=== PATIENT | male | born 1980 | race African-American/Black ===

== ENCOUNTER 2016-08-10 09:25 | Emergency (ER) | payer MEDICAID ==
[~2016-08-10] VITALS: Ht 172.7 cm; Wt 78.9 kg
[~2016-08-10 09:25] MED LIST: ALBU0.084; ALBU18; ASPI81TA10; NAPR-607; OMEP20TA44; TRAM50TA2
[2016-08-10 09:30] VITALS: BP 151/82
[2016-08-10] MEDS ORDERED: KETOROLAC TROMETH 60MG/2ML VIAL IM ONE (10:15)
== END 2016-08-10 10:37 | disposition home or self-care (01) ==
LOC: ER 09:30
DX: M54.41 Lumbago with sciatica, right side (principal); J45.909 Unspecified asthma, uncomplicated; I10 Essential (primary) hypertension; F17.210 Nicotine dependence, cigarettes, uncomplicated; Z86.73 Personal history of transient ischemic attack (TIA), and cerebral infarction without residual deficits
CPT/HCPCS: 96372; 99283; J1885

== ENCOUNTER 2017-04-02 12:45 | Emergency (ER) | payer MEDICAID ==
[~2017-04-02] VITALS: Ht 172.7 cm; Wt 72.1 kg
[~2017-04-02 12:45] MED LIST changes: -NAPR-607; +NAPR500T4
[2017-04-02] MEDS ORDERED: IPRATROPIUM BROM 0.5 MG/2.5ML INH SOL NEB ONE (14:30)
[2017-04-02] MEDS ORDERED: methylPREDNISolone SOD SUCC 125 MG/2 ML VL IM ONE (14:30)
[2017-04-02] MEDS ORDERED: KETOROLAC TROMETH 60MG/2ML VIAL IM ONE (14:30)
[2017-04-02] MEDS ORDERED: ALBUTEROL SULF 2.5 MG/0.5ML(0.5%) NEB SOLN NEB ONE (14:30)
[2017-04-02 15:03] VITALS: BP 126/74
== END 2017-04-02 15:03 | disposition home or self-care (01) ==
LOC: ER 12:45
DX: S29.012A Strain of muscle and tendon of back wall of thorax, initial encounter (principal); J45.901 Unspecified asthma with (acute) exacerbation; I10 Essential (primary) hypertension; F17.200 Nicotine dependence, unspecified, uncomplicated; X58.XXXA Exposure to other specified factors, initial encounter; Y93.89 Activity, other specified; Y92.89 Other specified places as the place of occurrence of the external cause; Y99.8 Other external cause status; Z86.73 Personal history of transient ischemic attack (TIA), and cerebral infarction without residual deficits
CPT/HCPCS: 71020; 94640; 96372; 99284; J1885; J2930

== ENCOUNTER 2017-06-11 11:32 | Emergency (ER) | payer MEDICAID ==
[~2017-06-11] VITALS: Ht 172.7 cm; Wt 70.3 kg
[~2017-06-11 11:32] MED LIST changes: +NAPR500T31; -NAPR500T4
[2017-06-11 13:57] VITALS: BP 136/91
== END 2017-06-11 14:05 | disposition home or self-care (01) ==
LOC: ER 11:32
DX: G89.29 Other chronic pain (principal); M54.5 Low back pain; I10 Essential (primary) hypertension; J45.909 Unspecified asthma, uncomplicated; F17.210 Nicotine dependence, cigarettes, uncomplicated; Z76.0 Encounter for issue of repeat prescription; Z79.899 Other long term (current) drug therapy

== ENCOUNTER 2017-08-07 09:53 | Emergency (ER) | payer MEDICAID, OTHER ==
[~2017-08-07] VITALS: Ht 172.7 cm; Wt 71.2 kg
[2017-08-07 10:02] VITALS: BP 122/89
[2017-08-07] MEDS ORDERED: KETOROLAC TROMETH 60MG/2ML VIAL IM ONE (12:30)
== END 2017-08-07 12:51 | disposition home or self-care (01) ==
LOC: ER 09:53
DX: J02.9 Acute pharyngitis, unspecified (principal); M54.41 Lumbago with sciatica, right side; G89.29 Other chronic pain; J45.909 Unspecified asthma, uncomplicated; I10 Essential (primary) hypertension
CPT/HCPCS: 96372; 99283; J1885

== ENCOUNTER 2017-12-26 05:38 | Observation (INO) | payer MEDICAID, OTHER ==
[~2017-12-26] VITALS: Ht 172.7 cm; Wt 70.3 kg
[2017-12-26 06:40] LABS: Basophils # (auto) 0.1 uL; Basophils % (auto) 0.7 % (0.0-2.0); Eosinophils # (auto) 0.4 uL; Eosinophils % (auto) 3.3 % (0.0-7.0); Hematocrit 48.5 % (41.0-53.0); Hemoglobin 16.7 g/dL (13.5-17.5); Lymphocytes # (auto) 2.3 uL; Lymphocytes % (auto) 18.7 % (10.0-50.0); Mean Corpuscular Hemoglobin 32.8 pg (28.0-32.0); Mean Corpuscular Hgb Conc. 34.5 g/dL (32.0-36.0); Mean Corpuscular Volume 95.1 fL (80.0-100.0); Monocytes # (auto) 0.6 uL; Monocytes % (auto) 5.1 % (0.0-12.0); Neutrophils % (auto) 72.2 % (37.0-80.0); Nucleated Red Blood Cells % 0.1 %; Platelet Count (auto) 186 10^3/uL (140-450); Red Cell Distribution Width 13.3 % (11.8-14.3); White Blood Cell 12.4 10^3/uL (4.4-10.8)
[2017-12-26 06:59] LABS: Alanine Aminotransferase 26 U/L (16-61); Albumin 3.7 g/dL (3.4-5.0); Anion Gap 8 (5-15); Aspartate Aminotransferase 12 U/L (15-37); BUN/Creatinine Ratio 11.6; Blood Urea Nitrogen 16 mg/dL (7-18); Calcium 8.1 mg/dL (8.5-10.1); Carbon Dioxide 24 mmol/L (21-32); Chloride 111 mmol/L (98-107); GFR African American 74 mL/min; GFR Non-African American 61 mL/min; Glucose 87 mg/dL (74-106); Potassium 3.8 mmol/L (3.5-5.1); Sodium 143 mmol/L (136-145)
[2017-12-26 07:04] LABS: Alkaline Phosphatase 72 U/L (45-117); Bilirubin, Total 0.4 mg/dL (0.2-1.0); Total Protein 6.7 g/dL (6.4-8.2)
[2017-12-26 07:27] LABS: Urine Bacteria NONE SEEN /hpf (None Seen); Urine Blood Negative /uL (Negative); Urine Specific Gravity 1.007 (1.001-1.035); Urine WBC <1 /hpf (0 - 3)
[2017-12-26] MEDS ORDERED: methylPREDNISolone SOD SUCC 125 MG/2 ML VL IV ONE (07:30)
[2017-12-26] MEDS ORDERED: SODIUM CHLORIDE 0.9% 1,000 ML IV ONE (07:30)
[2017-12-26] MEDS ORDERED: IPRATROPIUM BROM 0.5 MG/2.5ML INH SOL NEB ONE (07:30)
[2017-12-26] MEDS ORDERED: ALBUTEROL SULF 2.5 MG/0.5ML(0.5%) NEB SOLN NEB ONE (07:30)
[2017-12-26 10:42] VITALS: BP 151/93
== END 2017-12-26 12:43 | disposition home or self-care (01) | DRG 141 ==
LOC: ER 05:38 → EDBD 05:38 → OVERFLOW 05:39 → ER 12:43
PROVIDERS: ADMIT Emergency Medicine; ATTEND Emergency Medicine
DX: J45.901 Unspecified asthma with (acute) exacerbation (principal); F17.210 Nicotine dependence, cigarettes, uncomplicated; I10 Essential (primary) hypertension; K59.00 Constipation, unspecified; K21.9 Gastro-esophageal reflux disease without esophagitis; Z82.3 Family history of stroke
CPT/HCPCS: 36415; 71045; 80053; 81001; 83735; 84484; 85025; 94640; 96374; 99285; G0378; J2930; J7030

== ENCOUNTER 2018-05-25 16:22 | Emergency (ER) | payer MEDICAID ==
[~2018-05-25] VITALS: Ht 172.7 cm; Wt 74.8 kg
[2018-05-25 16:50] VITALS: BP 132/95
[2018-05-25] MEDS ORDERED: methylPREDNISolone SOD SUCC 125 MG/2 ML VL IM ONE (17:45)
== END 2018-05-25 18:01 | disposition home or self-care (01) ==
LOC: ER 16:26
DX: J35.01 Chronic tonsillitis (principal); F17.210 Nicotine dependence, cigarettes, uncomplicated; J45.909 Unspecified asthma, uncomplicated; K21.9 Gastro-esophageal reflux disease without esophagitis; I10 Essential (primary) hypertension
CPT/HCPCS: 71046; 96372; 99283; J2930

== ENCOUNTER 2018-11-01 08:15 | Emergency (ER) | payer MEDICAID ==
[~2018-11-01] VITALS: Ht 172.7 cm; Wt 74.8 kg
[2018-11-01] MEDS ORDERED: ALBUTEROL SULF 2.5 MG/0.5ML(0.5%) NEB SOLN NEB ONE (09:00)
[2018-11-01] MEDS ORDERED: methylPREDNISolone SOD SUCC 125 MG/2 ML VL IM ONE (09:00)
[2018-11-01] MEDS ORDERED: IPRATROPIUM BROM 0.5 MG/2.5ML INH SOL NEB ONE (09:00)
[2018-11-01 09:52] VITALS: BP 142/85
== END 2018-11-01 09:54 | disposition home or self-care (01) ==
LOC: ER 08:17
DX: J45.909 Unspecified asthma, uncomplicated (principal); F17.210 Nicotine dependence, cigarettes, uncomplicated; I10 Essential (primary) hypertension; K21.9 Gastro-esophageal reflux disease without esophagitis
CPT/HCPCS: 94640; 96372; 99283; J2930; J7611; J7644

== ENCOUNTER 2019-02-23 13:07 | Emergency (ER) | payer MEDICAID ==
[~2019-02-23] VITALS: Ht 172.7 cm; Wt 74.8 kg
[2019-02-23 14:16] VITALS: BP 130/81
[2019-02-23] MEDS ORDERED: ALBUTEROL SULF 2.5 MG/0.5ML(0.5%) NEB SOLN NEB ONE (14:30)
[2019-02-23] MEDS ORDERED: IPRATROPIUM BROM 0.5 MG/2.5ML INH SOL NEB ONE (14:30)
[2019-02-23] MEDS ORDERED: methylPREDNISolone SOD SUCC 125 MG/2 ML VL IM ONE (14:30)
== END 2019-02-23 15:07 | disposition home or self-care (01) ==
LOC: ER 13:07
DX: J45.909 Unspecified asthma, uncomplicated (principal); K21.9 Gastro-esophageal reflux disease without esophagitis; I10 Essential (primary) hypertension; F17.210 Nicotine dependence, cigarettes, uncomplicated
CPT/HCPCS: 94640; 96372; 99283; J2930; J7611; J7644

== ENCOUNTER 2019-03-03 12:03 | Emergency (ER) | payer MEDICAID ==
[~2019-03-03] VITALS: Ht 172.7 cm; Wt 74.8 kg
[2019-03-03 14:57] VITALS: BP 145/101
== END 2019-03-03 15:04 | disposition home or self-care (01) ==
LOC: ER 12:03
DX: J06.9 Acute upper respiratory infection, unspecified (principal); J45.909 Unspecified asthma, uncomplicated; K21.9 Gastro-esophageal reflux disease without esophagitis; I10 Essential (primary) hypertension
CPT/HCPCS: 71046

== ENCOUNTER 2019-11-28 20:30 | Emergency (ER) | payer MEDICAID ==
[~2019-11-28] VITALS: Ht 172.7 cm; Wt 76.2 kg
[2019-11-28] MEDS ORDERED: ALBUTEROL SULF 2.5 MG/0.5ML(0.5%) NEB SOLN NEB ONE (20:45)
[2019-11-28] MEDS ORDERED: IPRATROPIUM BROM 0.5 MG/2.5ML INH SOL NEB ONE (20:45)
[2019-11-29 00:16] VITALS: BP 124/78
[2019-11-29] MEDS ORDERED: methylPREDNISolone SOD SUCC 125 MG/2 ML VL IM ONE (01:00)
== END 2019-11-29 01:08 | disposition home or self-care (01) ==
LOC: ER 20:30
DX: J45.901 Unspecified asthma with (acute) exacerbation (principal); K21.9 Gastro-esophageal reflux disease without esophagitis; I10 Essential (primary) hypertension; F17.210 Nicotine dependence, cigarettes, uncomplicated; Z76.0 Encounter for issue of repeat prescription
CPT/HCPCS: 71045; 94640; 96372; 99283; J2930; J7644

== ENCOUNTER 2020-12-14 20:20 | Emergency (ER) | payer MEDICAID ==
[~2020-12-14] VITALS: Ht 172.7 cm; Wt 74.8 kg
[2020-12-14] MEDS ORDERED: ALBUTEROL SULF 2.5 MG/0.5ML(0.5%) NEB SOLN NEB ONE (22:30)
[2020-12-14] MEDS ORDERED: IPRATROPIUM BROM 0.5 MG/2.5ML INH SOL NEB ONE (22:30)
[2020-12-15 00:34] VITALS: BP 107/72
[2020-12-15] MEDS ORDERED: methylPREDNISolone SOD SUCC 125 MG/2 ML VL IM ONE (01:45)
[2020-12-15] MEDS ORDERED: methylPREDNISolone SOD SUCC 125 MG/2 ML VL ONE (01:48)
== END 2020-12-15 01:55 | disposition home or self-care (01) ==
LOC: ER 20:20
DX: J45.901 Unspecified asthma with (acute) exacerbation (principal); K21.9 Gastro-esophageal reflux disease without esophagitis; I10 Essential (primary) hypertension; F17.210 Nicotine dependence, cigarettes, uncomplicated
CPT/HCPCS: 71045; 94640; 96372; 99283; J2930

== ENCOUNTER 2021-04-25 10:29 | Emergency (ER) | payer MEDICAID ==
[~2021-04-25] VITALS: Ht 172.7 cm; Wt 77.1 kg
[2021-04-25 11:06] LABS: Urine WBC None Seen /hpf (0 - 3)
[2021-04-25] MEDS ORDERED: ASPirin 81 mg TAB PO ONE (11:15)
[2021-04-25 11:20] LABS: Urine Bacteria NONE SEEN /hpf (None Seen); Urine Blood Negative /uL (Negative)
[2021-04-25 11:20] LABS: Basophils # (auto) 0 10 ^3/uL (0-0.2); Basophils % (auto) 0.2 % (0.0-2.0); Eosinophils # (auto) 0.1 10 ^3/uL (0-0.8); Eosinophils % (auto) 0.5 % (0.0-7.0); Hematocrit 47.9 % (41.0-53.0); Hemoglobin 16.7 g/dL (13.5-17.5); Lymphocytes # (auto) 1.2 10 ^3/uL (0.4-5.4); Lymphocytes % (auto) 12.1 % (10.0-50.0); Mean Corpuscular Hemoglobin 32.6 pg (28.0-32.0); Mean Corpuscular Hgb Conc. 34.8 g/dL (32.0-36.0); Mean Corpuscular Volume 93.8 fL (80.0-100.0); Monocytes # (auto) 0.3 10 ^3/uL (0-1.3); Neutrophils # (auto) 8.6 10 ^3/uL (1.6-8.6); Neutrophils % (auto) 84.2 % (37.0-80.0); Nucleated Red Blood Cells % 0.1 %; Red Blood Cells 5.11 10^6/uL (4.5-5.90); White Blood Cell 10.2 10^3/uL (4.4-10.8)
[2021-04-25 11:27] LABS: Urine Specific Gravity 1.005 (1.001-1.035)
[2021-04-25 11:38] LABS: Magnesium 2.6 mg/dL (1.6-2.6); Potassium 3.9 mmol/L (3.5-5.1)
[2021-04-25 11:45] LABS: Bilirubin, Total 0.6 mg/dL (0.2-1.0); Total Protein 7.2 g/dL (6.4-8.2)
[2021-04-25 12:53] VITALS: BP 127/71
== END 2021-04-25 12:57 | disposition home or self-care (01) ==
LOC: ER 10:29
DX: R07.89 Other chest pain (principal); F17.210 Nicotine dependence, cigarettes, uncomplicated; J45.909 Unspecified asthma, uncomplicated; I10 Essential (primary) hypertension; F12.10 Cannabis abuse, uncomplicated
CPT/HCPCS: 36415; 70450; 71045; 80053; 81001; 83735; 84484; 85025; 93005

== ENCOUNTER 2021-05-22 20:17 | Emergency (ER) | payer MEDICAID ==
[~2021-05-22] VITALS: Ht 182.9 cm; Wt 77.1 kg
[2021-05-22 20:30] VITALS: BP 158/99
[2021-05-22] MEDS ORDERED: LORazepam 0.5 MG TAB PO ONE (22:00)
[2021-05-22] MEDS ORDERED: LORazepam 0.5 MG TAB ONE (22:15)
== END 2021-05-23 06:16 | disposition home or self-care (01) ==
LOC: EDBD 20:17 → ER 20:34
DX: F41.0 Panic disorder [episodic paroxysmal anxiety] (principal); F17.210 Nicotine dependence, cigarettes, uncomplicated; F12.10 Cannabis abuse, uncomplicated; I10 Essential (primary) hypertension; J45.909 Unspecified asthma, uncomplicated

== ENCOUNTER 2021-12-21 11:14 | Emergency (ER) | payer MEDICAID ==
[~2021-12-21] VITALS: Ht 172.7 cm; Wt 77.0 kg
[2021-12-21] MEDS ORDERED: MORPHINE SULFATE INJ 2 MG/ml SYRG IM ONE (14:00)
[2021-12-21] MEDS ORDERED: methylPREDNISolone SOD SUCC 125 MG/2 ML VL IM ONE (14:00)
[2021-12-21 14:33] VITALS: BP 136/64
== END 2021-12-21 14:41 | disposition home or self-care (01) ==
LOC: EDBD 11:14 → ER 11:21
DX: M54.16 Radiculopathy, lumbar region (principal); G89.29 Other chronic pain; J45.909 Unspecified asthma, uncomplicated; K21.9 Gastro-esophageal reflux disease without esophagitis; I10 Essential (primary) hypertension; F17.210 Nicotine dependence, cigarettes, uncomplicated; F12.10 Cannabis abuse, uncomplicated
CPT/HCPCS: 96372; 99284; J2270; J2930

== ENCOUNTER 2021-12-25 10:01 | Emergency (ER) | payer MEDICAID ==
[~2021-12-25] VITALS: Ht 177.8 cm; Wt 77.2 kg
[2021-12-25] MEDS ORDERED: ALBU108A5 IN (11:41)
[2021-12-25] MEDS ORDERED: PROMETHAZINE HCL 25 MG/ML 1ML IM ONE (11:45)
[2021-12-25] MEDS ORDERED: MORPHINE SULFATE INJ 2 MG/ml SYRG IM ONE (11:45)
[2021-12-25 12:10] VITALS: BP 152/102
== END 2021-12-25 12:34 | disposition home or self-care (01) ==
LOC: ER 10:01 → EDBD 10:01 → ER 12:34
DX: G89.29 Other chronic pain (principal); M54.50 Low back pain, unspecified; M54.16 Radiculopathy, lumbar region; J45.909 Unspecified asthma, uncomplicated; M51.36 Other intervertebral disc degeneration, lumbar region; I10 Essential (primary) hypertension; K21.9 Gastro-esophageal reflux disease without esophagitis; F17.210 Nicotine dependence, cigarettes, uncomplicated; Z76.0 Encounter for issue of repeat prescription; Z79.82 Long term (current) use of aspirin; Z79.899 Other long term (current) drug therapy
CPT/HCPCS: 72100; 96372; 99284; J2270; J2550

== ENCOUNTER 2022-01-01 08:08 | Emergency (ER) | payer MEDICAID ==
[~2022-01-01] VITALS: Ht 172.7 cm; Wt 79.2 kg
[~2022-01-01 08:08] MED LIST changes: +ALBU108A5 IN
[2022-01-01 08:15] VITALS: BP 151/102
[2022-01-01] MEDS ORDERED: KETOROLAC TROMETH 60MG/2ML VIAL IM ONE (09:00)
== END 2022-01-01 08:58 | disposition home or self-care (01) ==
LOC: ER 08:08
DX: M54.31 Sciatica, right side (principal); M54.16 Radiculopathy, lumbar region; F17.210 Nicotine dependence, cigarettes, uncomplicated; F12.10 Cannabis abuse, uncomplicated; J45.909 Unspecified asthma, uncomplicated; I10 Essential (primary) hypertension
CPT/HCPCS: 96372; 99283; J1885

== ENCOUNTER 2022-01-03 08:57 | Emergency (ER) | payer MEDICAID ==
[~2022-01-03] VITALS: Ht 172.7 cm; Wt 77.2 kg
[2022-01-03] MEDS ORDERED: KETOROLAC TROMETH 60MG/2ML VIAL IM ONE ×2 (10:00→10:15)
[2022-01-03] MEDS ORDERED: ONDANSETRON ODT 4 MG TAB PO ONE ×2 (10:00→10:15)
[2022-01-03 10:44] VITALS: BP 144/86
== END 2022-01-03 10:47 | disposition home or self-care (01) ==
LOC: ER 08:57
DX: M51.37 Other intervertebral disc degeneration, lumbosacral region (principal); I10 Essential (primary) hypertension; K21.9 Gastro-esophageal reflux disease without esophagitis; J45.909 Unspecified asthma, uncomplicated; F17.210 Nicotine dependence, cigarettes, uncomplicated; Z79.82 Long term (current) use of aspirin; Z79.899 Other long term (current) drug therapy
CPT/HCPCS: 96372; 99283; J1885; Q0162

== ENCOUNTER 2022-01-04 07:01 | Emergency (ER) | payer MEDICAID ==
[~2022-01-04] VITALS: Ht 172.7 cm; Wt 80.0 kg
[2022-01-04] MEDS ORDERED: MORPHINE SULFATE INJ 2 MG/ml SYRG IM ONE (09:30)
[2022-01-04 09:42] VITALS: BP 154/106
== END 2022-01-04 09:45 | disposition home or self-care (01) ==
LOC: EDBD 07:01 → ER 07:01
DX: M54.9 Dorsalgia, unspecified (principal); G89.29 Other chronic pain; F11.20 Opioid dependence, uncomplicated; F17.210 Nicotine dependence, cigarettes, uncomplicated; F12.10 Cannabis abuse, uncomplicated; I10 Essential (primary) hypertension; K21.9 Gastro-esophageal reflux disease without esophagitis; J45.909 Unspecified asthma, uncomplicated
CPT/HCPCS: 96372; 99283; J2270

== ENCOUNTER 2022-01-06 10:50 | Emergency (ER) | payer MEDICAID ==
[~2022-01-06] VITALS: Ht 175.3 cm; Wt 80.0 kg
[2022-01-06] MEDS ORDERED: KETOROLAC TROMETH 60MG/2ML VIAL IM ONE (13:30)
[2022-01-06 13:49] VITALS: BP 155/93
== END 2022-01-06 13:57 | disposition home or self-care (01) ==
LOC: EDBD 10:50 → ER 10:50
DX: M54.59 Other low back pain (principal); M54.16 Radiculopathy, lumbar region; M54.31 Sciatica, right side; F17.210 Nicotine dependence, cigarettes, uncomplicated; F12.10 Cannabis abuse, uncomplicated
CPT/HCPCS: 96372; 99283; J1885

== ENCOUNTER 2022-01-12 09:37 | Emergency (ER) | payer MEDICAID ==
[~2022-01-12] VITALS: Ht 172.7 cm; Wt 76.9 kg
[2022-01-12 09:44] VITALS: BP 141/91
[2022-01-12] MEDS ORDERED: CEPH-510 PO (11:03)
[2022-01-12] MEDS ORDERED: KETOROLAC TROMETH 60MG/2ML VIAL IM ONE (11:15)
== END 2022-01-12 11:57 | disposition home or self-care (01) ==
LOC: ER 09:37
DX: M54.16 Radiculopathy, lumbar region (principal); L03.113 Cellulitis of right upper limb; G89.29 Other chronic pain; M54.50 Low back pain, unspecified; I10 Essential (primary) hypertension; K21.9 Gastro-esophageal reflux disease without esophagitis; J45.909 Unspecified asthma, uncomplicated; F17.210 Nicotine dependence, cigarettes, uncomplicated; Z79.82 Long term (current) use of aspirin; Z79.899 Other long term (current) drug therapy
CPT/HCPCS: 96372; 99283; J1885

== ENCOUNTER 2022-01-28 01:31 | Emergency (ER) | payer MEDICAID ==
[~2022-01-28] VITALS: Ht 172.7 cm; Wt 79.4 kg
[~2022-01-28 01:31] MED LIST changes: +CEPH-510 PO
[2022-01-28 05:40] VITALS: BP 153/103
[2022-01-28] MEDS ORDERED: KETOROLAC TROMETH 60MG/2ML VIAL IM ONE (07:45)
== END 2022-01-28 09:26 | disposition home or self-care (01) ==
LOC: EDBD 01:31 → ER 01:33
DX: R51.9 Headache, unspecified (principal); J45.909 Unspecified asthma, uncomplicated; K21.9 Gastro-esophageal reflux disease without esophagitis; I10 Essential (primary) hypertension; F17.210 Nicotine dependence, cigarettes, uncomplicated; F12.10 Cannabis abuse, uncomplicated
CPT/HCPCS: 70450; 96372; 99283; J1885

== ENCOUNTER 2022-03-09 09:11 | Emergency (ER) | payer MEDICAID ==
[~2022-03-09] VITALS: Ht 172.7 cm; Wt 77.9 kg
[2022-03-09 10:20] VITALS: BP 132/96
[2022-03-09] MEDS ORDERED: DexAMETHasone SOD PHOS 10MG/1ML VIAL INJ IM ONE (11:00)
[2022-03-09] MEDS ORDERED: cefTRIAXone SOD 1,000 MG VL IM ONE (11:00)
[2022-03-09] MEDS ORDERED: METH4PAK PO (11:27)
[2022-03-09] MEDS ORDERED: PHEN-430 PO (11:27)
[2022-03-09] MEDS ORDERED: AZITTAB PO (11:27)
[2022-03-09 11:39] LABS: Urine Bacteria NONE SEEN /hpf (None Seen); Urine Blood Negative /uL (Negative); Urine Specific Gravity 1.015 (1.001-1.035); Urine WBC <1 /hpf (0 - 3)
== END 2022-03-09 11:48 | disposition home or self-care (01) ==
LOC: ER 09:11
DX: J06.9 Acute upper respiratory infection, unspecified (principal); I10 Essential (primary) hypertension; K21.9 Gastro-esophageal reflux disease without esophagitis; J45.909 Unspecified asthma, uncomplicated; F17.210 Nicotine dependence, cigarettes, uncomplicated
CPT/HCPCS: 81001; 96372; 99284; J0696; J1100

== ENCOUNTER 2022-05-05 15:24 | Emergency (ER) | payer MEDICAID ==
[~2022-05-05] VITALS: Ht 172.7 cm; Wt 79.2 kg
[~2022-05-05 15:24] MED LIST changes: +AZITTAB PO; +METH4PAK PO; +PHEN-430 PO
[2022-05-05 15:51] VITALS: BP 158/91
[2022-05-05] MEDS ORDERED: BENZ100C19 PO (16:54)
[2022-05-05] MEDS ORDERED: ALBU108A5 IN (16:54)
[2022-05-05] MEDS ORDERED: AZITTAB PO (16:54)
== END 2022-05-05 17:52 | disposition home or self-care (01) ==
LOC: ER 15:24
DX: J20.9 Acute bronchitis, unspecified (principal); I10 Essential (primary) hypertension; K21.9 Gastro-esophageal reflux disease without esophagitis; J45.909 Unspecified asthma, uncomplicated; F17.210 Nicotine dependence, cigarettes, uncomplicated; Z79.82 Long term (current) use of aspirin; Z79.899 Other long term (current) drug therapy; Z20.822 Contact with and (suspected) exposure to COVID-19
CPT/HCPCS: 36415; 71046; 87426; 87804

== ENCOUNTER 2022-07-07 11:04 | Emergency (ER) | payer MEDICAID ==
[~2022-07-07] VITALS: Ht 172.7 cm; Wt 78.0 kg
[~2022-07-07 11:04] MED LIST changes: +BENZ100C19 PO
[2022-07-07 11:40] LABS: Basophils # (auto) 0.1 10 ^3/uL (0-0.2); Basophils % (auto) 0.5 % (0.0-2.0); Eosinophils # (auto) 0.5 10 ^3/uL (0-0.8); Eosinophils % (auto) 3.1 % (0.0-7.0); Hematocrit 48.2 % (41.0-53.0); Hemoglobin 16.6 g/dL (13.5-17.5); Lymphocytes # (auto) 2.3 10 ^3/uL (0.4-5.4); Mean Corpuscular Hemoglobin 32.3 pg (28.0-32.0); Mean Corpuscular Hgb Conc. 34.4 g/dL (32.0-36.0); Mean Corpuscular Volume 93.9 fL (80.0-100.0); Monocytes # (auto) 0.9 10 ^3/uL (0-1.3); Monocytes % (auto) 5.7 % (0.0-12.0); Neutrophils # (auto) 11.6 10 ^3/uL (1.6-8.6); Neutrophils % (auto) 75.7 % (37.0-80.0); Red Blood Cells 5.14 10^6/uL (4.5-5.90); Red Cell Distribution Width 13.3 % (11.8-14.3); White Blood Cell 15.3 10^3/uL (4.4-10.8)
[2022-07-07 12:16] LABS: Albumin 4.3 g/dL (3.4-5.0); BUN/Creatinine Ratio 12.1; Bilirubin, Total 0.7 mg/dL (0.2-1.0); Calcium 8.8 mg/dL (8.5-10.1); Potassium 4.8 mmol/L (3.5-5.1); Total Protein 6.7 g/dL (6.4-8.2)
[2022-07-07] MEDS ORDERED: methylPREDNISolone SOD SUCC 125 MG/2 ML VL IM ONE (12:30)
[2022-07-07] MEDS ORDERED: IPRATROPIUM BROM 0.5 MG/2.5ML INH SOL NEB ONE (12:30)
[2022-07-07] MEDS ORDERED: ALBUTEROL SULF 2.5 MG/0.5ML(0.5%) NEB SOLN NEB ONE (12:30)
[2022-07-07] MEDS ORDERED: LEVO-28 PO (12:56)
[2022-07-07 17:00] VITALS: BP 124/73
== END 2022-07-07 17:10 | disposition home or self-care (01) ==
LOC: ER 11:04
DX: J20.9 Acute bronchitis, unspecified (principal); J45.909 Unspecified asthma, uncomplicated; F32.9 Major depressive disorder, single episode, unspecified; K21.9 Gastro-esophageal reflux disease without esophagitis; I10 Essential (primary) hypertension; F17.210 Nicotine dependence, cigarettes, uncomplicated
CPT/HCPCS: 36415; 71045; 80053; 84484; 85025; 85379; 94640; 96372; 99284; J2930; J7644

== ENCOUNTER 2022-09-13 08:36 | Emergency (ER) | payer MEDICAID ==
[~2022-09-13] VITALS: Ht 177.8 cm; Wt 90.9 kg
[~2022-09-13 08:36] MED LIST changes: +LEVO-28 PO
[2022-09-13] MEDS ORDERED: LORazepam 2MG/ML-1ML VIAL IV ONE (09:15)
[2022-09-13] MEDS ORDERED: methylPREDNISolone SOD SUCC 125 MG/2 ML VL IV ONE (09:15)
[2022-09-13 09:18] LABS: Basophils # (auto) 0.1 10 ^3/uL (0-0.2); Basophils % (auto) 0.7 % (0.0-2.0); Eosinophils # (auto) 0.1 10 ^3/uL (0-0.8); Eosinophils % (auto) 1.4 % (0.0-7.0); Hematocrit 46.8 % (41.0-53.0); Hemoglobin 16.1 g/dL (13.5-17.5); Lymphocytes % (auto) 19.8 % (10.0-50.0); Mean Corpuscular Hemoglobin 31.8 pg (28.0-32.0); Mean Corpuscular Hgb Conc. 34.3 g/dL (32.0-36.0); Mean Corpuscular Volume 92.7 fL (80.0-100.0); Monocytes # (auto) 0.8 10 ^3/uL (0-1.3); Monocytes % (auto) 8.4 % (0.0-12.0); Neutrophils # (auto) 6.9 10 ^3/uL (1.6-8.6); Neutrophils % (auto) 69.7 % (37.0-80.0); Nucleated Red Blood Cells % 0.4 %; Red Blood Cells 5.05 10^6/uL (4.5-5.90); Red Cell Distribution Width 14.3 % (11.8-14.3); White Blood Cell 9.9 10^3/uL (4.4-10.8)
[2022-09-13 09:37] LABS: INR 1.01 (0.9-1.15); Partial Thromboplastin Time 24.5 sec (24.6-33.4)
[2022-09-13 09:42] LABS: Calcium 8.4 mg/dL (8.5-10.1); Magnesium 1.9 mg/dL (1.6-2.6); Potassium 3.7 mmol/L (3.5-5.1)
[2022-09-13 09:46] LABS: BUN/Creatinine Ratio 13.4 (10.0-20.0); Bilirubin, Total 0.4 mg/dL (0.2-1.0); Total Protein 6.5 g/dL (6.4-8.2)
[2022-09-13 11:27] VITALS: BP 128/79
== END 2022-09-13 11:31 | disposition home or self-care (01) ==
LOC: ER 08:36 → EDBD 08:36 → ER 11:31
DX: F41.9 Anxiety disorder, unspecified (principal); J45.909 Unspecified asthma, uncomplicated; I10 Essential (primary) hypertension; E78.5 Hyperlipidemia, unspecified; F32.9 Major depressive disorder, single episode, unspecified; K21.9 Gastro-esophageal reflux disease without esophagitis; F17.210 Nicotine dependence, cigarettes, uncomplicated; F12.10 Cannabis abuse, uncomplicated
CPT/HCPCS: 36415; 71045; 80053; 83735; 83880; 84484; 85025; 85379; 85610; 85730; 93005; 96374; 96375; 99285; J2060; J2930

== ENCOUNTER 2022-12-30 22:26 | Emergency (ER) | payer MEDICAID ==
[~2022-12-30] VITALS: Ht 172.7 cm; Wt 77.3 kg
[~2022-12-30 22:26] MED LIST changes: -LEVO-28 PO; +LEVO500T91 PO; +NAPR-746; -NAPR500T31
[2022-12-30 23:41] LABS: Basophils # (auto) 0.1 10 ^3/uL (0-0.2); Eosinophils # (auto) 0.2 10 ^3/uL (0-0.8); Nucleated Red Blood Cells % 0.1 %
[2022-12-30 23:42] LABS: Basophils % (auto) 0.5 % (0.0-2.0); Eosinophils % (auto) 1.1 % (0.0-7.0); Hematocrit 52.8 % (41.0-53.0); Hemoglobin 18.1 g/dL (13.5-17.5); Lymphocytes # (auto) 2.7 10 ^3/uL (0.4-5.4); Lymphocytes % (auto) 16.4 % (10.0-50.0); Mean Corpuscular Hemoglobin 32.4 pg (28.0-32.0); Mean Corpuscular Hgb Conc. 34.3 g/dL (32.0-36.0); Mean Corpuscular Volume 94.3 fL (80.0-100.0); Monocytes # (auto) 1.4 10 ^3/uL (0-1.3); Monocytes % (auto) 8.3 % (0.0-12.0); Neutrophils # (auto) 12.1 10 ^3/uL (1.6-8.6); Neutrophils % (auto) 73.7 % (37.0-80.0); Red Cell Distribution Width 13.9 % (11.8-14.3); White Blood Cell 16.4 10^3/uL (4.4-10.8)
[2022-12-31] LABS: Alkaline Phosphatase 80 U/L (46-116); Anion Gap 10.2 (5-15); Aspartate Aminotransferase 42 U/L (13-40); BUN/Creatinine Ratio 7.3 (10.0-20.0); Blood Urea Nitrogen 21 mg/dL (9-23); Carbon Dioxide 20.8 mmol/L (20-30); Chloride 100 mmol/L (98-107); Glucose 110 mg/dL (74-106); Potassium 3.9 mmol/L (3.5-5.1); Sodium 131 mmol/L (136-145)
[2022-12-31 00:01] LABS: Bilirubin, Total 1.2 mg/dL (0.2-1.0)
[2022-12-31 00:21] LABS: Alanine Aminotransferase 36 U/L (7-40)
[2022-12-31] MEDS ORDERED: KETOROLAC TROMETH 60MG/2ML VIAL IM ONE (00:30)
[2022-12-31 00:56] VITALS: BP 99/60; PULSE 66; RESP 17; O2SAT 97
== END 2022-12-31 01:12 | disposition home or self-care (01) ==
LOC: EDBD 22:26 → ER 22:26
DX: T67.01XA Heatstroke and sunstroke, initial encounter (principal); N28.9 Disorder of kidney and ureter, unspecified; J45.909 Unspecified asthma, uncomplicated; K21.9 Gastro-esophageal reflux disease without esophagitis; E78.5 Hyperlipidemia, unspecified; I10 Essential (primary) hypertension; F17.210 Nicotine dependence, cigarettes, uncomplicated; F12.10 Cannabis abuse, uncomplicated; X58.XXXA Exposure to other specified factors, initial encounter; Y93.89 Activity, other specified; Y92.89 Other specified places as the place of occurrence of the external cause; Y99.8 Other external cause status
CPT/HCPCS: 36415; 71045; 80053; 84484; 85025; 93005; 96372; 99285; J1885

== ENCOUNTER 2023-05-21 01:12 | Emergency (ER) | payer MEDICAID ==
[~2023-05-21] VITALS: Ht 172.7 cm; Wt 72.0 kg
[2023-05-21] MEDS ORDERED: TETANUS-DIPTH-ACEL PERTUSSIS 0.5ML SYR Tdap IM ONE (04:00)
[2023-05-21 04:44] VITALS: BP 118/83; PULSE 98; RESP 18; TEMP 98; O2SAT 96
[2023-05-21] MEDS ORDERED: CEPH500C PO (05:11)
== END 2023-05-21 06:01 | disposition home or self-care (01) ==
LOC: ER 01:12
DX: S00.01XA Abrasion of scalp, initial encounter (principal); F10.10 Alcohol abuse, uncomplicated; J45.909 Unspecified asthma, uncomplicated; K21.9 Gastro-esophageal reflux disease without esophagitis; E78.5 Hyperlipidemia, unspecified; I10 Essential (primary) hypertension; F17.210 Nicotine dependence, cigarettes, uncomplicated; F12.10 Cannabis abuse, uncomplicated; Y04.2XXA Assault by strike against or bumped into by another person, initial encounter; Y93.89 Activity, other specified; Y92.89 Other specified places as the place of occurrence of the external cause; Y99.8 Other external cause status; Y90.8 Blood alcohol level of 240 mg/100 ml or more
CPT/HCPCS: 36415; 70450; 80320; 90471; 90715

== ENCOUNTER 2023-10-22 03:12 | Emergency (ER) | payer MEDICAID ==
[~2023-10-22] VITALS: Ht 180.3 cm; Wt 72.0 kg
[~2023-10-22 03:12] MED LIST changes: +CEPH500C PO
[2023-10-22] MEDS: SODIUM CHLORIDE 0.9% 1,000 ML IV ONE (04:50)
[2023-10-22] MEDS: DexAMETHasone SOD PHOS 10MG/1ML VIAL INJ IV ONE (04:51)
[2023-10-22] MEDS: FAMOTIDINE (10MG/ML) 2ML VL IV ONE (04:51)
[2023-10-22 04:54] VITALS: BP 152/96; PULSE 76; TEMP 97.6
[2023-10-22] MEDS ORDERED: PSEU30TA3 PO (04:58)
[2023-10-22] MEDS ORDERED: PRED20TA2 PO (04:58)
[2023-10-22] MEDS ORDERED: FAMO20TA10 PO (04:58)
[2023-10-22] MEDS ORDERED: DIPH25CA66 PO (04:58)
[2023-10-22] MEDS: PSEUDOEPHEDRINE HCL 30 MG TAB PO ONE (05:42)
[2023-10-22] MEDS: diphenhdrAMINE HCL 50 MG/1 ML VL IV ONE (05:42)
[2023-10-22 05:43] VITALS: RESP 19; O2SAT 100
[2023-10-22] MEDS: IPRATROPIUM BROM 0.5 MG/2.5ML INH SOL NEB ONE (05:43)
[2023-10-22] MEDS: ALBUTEROL SULF 2.5 MG/0.5ML(0.5%) NEB SOLN NEB ONE (05:43)
== END 2023-10-22 06:01 | disposition home or self-care (01) ==
LOC: EDBD 03:12 → ER 03:12
DX: T78.49XA Other allergy, initial encounter (principal); J45.909 Unspecified asthma, uncomplicated; F32.A Depression, unspecified; K21.9 Gastro-esophageal reflux disease without esophagitis; E78.5 Hyperlipidemia, unspecified; I10 Essential (primary) hypertension; F17.210 Nicotine dependence, cigarettes, uncomplicated; F12.10 Cannabis abuse, uncomplicated; Z79.899 Other long term (current) drug therapy; X58.XXXA Exposure to other specified factors, initial encounter
CPT/HCPCS: 94640; 96361; 96374; 96375; 99284; J1100; J3490; J7030; J7644

== ENCOUNTER 2025-03-22 09:24 | Day surgery (SDC) | payer MEDICAID ==
[2025-03-17 12:26] LABS: Hematocrit 45.1 % (41.0-53.0); Hemoglobin 15.6 g/dL (13.5-17.5); Mean Corpuscular Hemoglobin 31.7 pg (28.0-32.0); Mean Corpuscular Volume 91.5 fL (80.0-100.0); Nucleated Red Blood Cells % 0.0 %
[2025-03-17 12:31] LABS: Urine Protein, UAD Negative (Negative)
[2025-03-17 12:44] LABS: INR 1.0 (0.9-1.15); Partial Thromboplastin Time 24.0 SEC (24.5-34.5); Prothrombin Time 10.6 sec (9.3-11.8)
[2025-03-17 12:56] LABS: Alanine Aminotransferase 38 U/L (7-40); Albumin 4.4 g/dL (3.2-4.8); Alkaline Phosphatase 75 U/L (46-116); Anion Gap 8 (5-15); BUN/Creatinine Ratio 7.5 (10.0-20.0); Bilirubin, Total 0.8 mg/dL (0.2-1.0); Blood Urea Nitrogen 10 mg/dL (9-23); Calcium 9.6 mg/dL (8.7-10.4); Carbon Dioxide 27 mmol/L (20-31); Chloride 106 mmol/L (98-107); Glucose 101 mg/dL (74-106); Potassium 4.4 mmol/L (3.5-5.1); Sodium 141 mmol/L (136-145); Total Protein 7.1 g/dL (5.7-8.2)
[~2025-03-22] VITALS: Ht 172.7 cm; Wt 89.4 kg
[~2025-03-22 09:24] MED LIST changes: -AZITTAB PO; -BENZ100C19 PO; -CEPH-510 PO; -CEPH500C PO; +GABA-1308 PO; +HYDR-4072 PO; +HYDR50TA47 PO; -LEVO500T91 PO; +LISI20TA56 PO; -METH4PAK PO; -NAPR-746; -PHEN-430 PO; +PRED20TA2 PO; +TIZA4CAP PO; -TRAM50TA2
[2025-03-22] MEDS ORDERED: LIDOCAINE 1% (LOCAL ANESTH.) PF 5ml SDV IJ ONE (09:25)
[2025-03-22] MEDS ORDERED: ROCURONIUM 10MG/ML 10ML VIAL IV ONE (10:39)
[2025-03-22] MEDS ORDERED: fentaNYL CITRATE 100 MCG/2 ML VL ONE (10:39)
[2025-03-22] MEDS ORDERED: GLYCOPYRROLATE 0.2 MG/ML 1ML VIAL ONE (10:39)
[2025-03-22] MEDS ORDERED: PROPOFOL 10 MG/ML 20 ML IV ONE (10:39)
[2025-03-22] MEDS ORDERED: KETOROLAC TROMETH 30 MG/ML 1ML VIAL ONE (10:39)
[2025-03-22] MEDS ORDERED: ONDANSETRON HCL 4 MG/2 ML VIAL ONE (10:39)
[2025-03-22] MEDS ORDERED: SUGAMMADEX 200mg/2ml Vial (100MG/ML) IV ONE (10:39)
[2025-03-22] MEDS ORDERED: KETAMINE 50mg/ML 1ml syringe ONE (10:39)
[2025-03-22] MEDS ORDERED: GABAPENTIN 300 MG CAP PO ONE (11:00)
[2025-03-22] MEDS ORDERED: ACETAMINOPHEN IV 1000 MG/100ML (10MG/ML) IV ONE (11:00)
[2025-03-22] MEDS ORDERED: CELECOXIB 100 MG CAP PO ONE (11:00)
[2025-03-22] MEDS: ceFAZolin 2 GM/D5W50ml 50 ML IV ONE (11:13)
[2025-03-22] MEDS ORDERED: ESMOLOL HCL 10 ML IV ONE (11:32)
[2025-03-22 12:03] VITALS: PULSE 105; RESP 10; O2SAT 100
--- NOTE | 2025-03-22 12:11 | DVHOP2 ---
Operative Report - 2 Report Details Date: 03/22/25 Preop Diagnosis: 1. Left achilles tendonitis 2. 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 Left foot pain Postop Diagnosis: Same as preop Surgeon: Matthieu Jackson MD Anesthesiologist: See anesthesia Anesthesia: General Implant: The [employer] speed bridge Consent: The patient was informed of the risks and benefits of the procedure. These include but are not limited to complications of anesthesia, postoperative infection, incomplete relief of symptoms, recurrence of symptoms, damage to blood vessels, nerves and tendons, deep venous thrombosis, pulmonary embolism and possible need for repeat surgery in the future. Complications: None Estimated Blood Loss: Minimal Fluids: See anesthesia Findings: Consistent with diagnosis Indications for Surgery: Worsening left foot pain Name of Procedure Performed 1. Left achilles repair (16075) 2. Left calcaneal spur excision (76409) Procedure Details Procedure Details: PRE-PROCEDURE INFORMATION: In the pre-op holding area, the extremity to be operated on was clearly marked and the patient verified correct laterality of the marking. The patient was transferred to the OR table and placed in a prone position. A timeout was performed in which identification of the correct patie nt, procedure, location, and materials was done. The left foot and leg were prepped and draped in normal sterile fashion. The foot and leg were exsanguinated and the thigh tourniquet was inflated to 250 mmHg. DESCRIPTION OF PROCEDURE: Attention was directed to the left posterior heel where a curvilinear incision was made over the posterior heel. Care was taken throughout dissection to avoid damage to neurovascular or tendinous structures. This incision was designed in a manner that, as the incision was deepened to the level of the Achilles, there were 2 flaps that were able to be opened and sutured down so as to be able to gain excellent exposure to the Achilles tendon. The peritenon was incised to be able to reveal the tendon, which appeared to have microtearing and fibrosis. All devitalized tissue and fibrosis was debrided off of the Achilles tendon. The Achilles was then detached from the posterior heel where the large exostosis was identified. Utilizing osteotomes, bone rasps, and other instrumentation, the exostosis of the posterior calcaneus was adequately resected. The area was smoothed down with bone rasps and revealed a normal posterior calcaneus after resection of the exostosis. Next, the Achilles tendon was reattached to the posterior calcaneus using the [employer] SpeedBridge set consisting of bone anchors and the suture material. After the SpeedBridge set was used, the Achilles appeared to be well reattached to the posterior calcaneus and there appeared to be no immediate complications from that reattachment. All surgical wounds were irrigated copiously with saline and closed in layers with the aforementioned suture material. A dry sterile dressing was placed on the surgical extremity. The patient was placed in a cam boot POSTOPERATIVE INFORMATION: The patient tolerated the above noted procedure and anesthesia well and was transferred to the PACU with vital signs stable, and vascular status intact with capillary refill intact to all digits. Postoperative instructions reviewed in detail with the patient with written instructions provided. Patient will return to clinic in approximately 10-14 days for first postoperative visit. Patient has the number of the clinic and was instructed to call prior to that time should any problems, questions, or concerns arise. Condition Good Disposition Home Visit Coding Podiatry Date of Service if different f: Mar 22, 2025 Billing Provider: MATTHIEU JACKSON DPM Podiatry Common Visit Codes: PROCEDURE ONLY MATTHIEU JACKSON DPM Mar 22, 2025 12:11
[2025-03-22 12:23] VITALS: TEMP 97.2
[2025-03-22] MEDS ORDERED: fentaNYL CITRATE 100 MCG/2 ML VL IV PRN (12:45)
[2025-03-22] MEDS ORDERED: FLUMAZENIL 0.1 MG/ML INJ 10ML MDV IV PRN (12:45)
[2025-03-22] MEDS ORDERED: ONDANSETRON HCL 4 MG/2 ML VIAL IV PRN (12:45)
[2025-03-22] MEDS ORDERED: NALOXONE HCL 0.4 MG/ML VIAL IV PRN (12:45)
[2025-03-22] MEDS ORDERED: HYDROmorphone HCL 2 MG/ML VL/or syr IV PRN (12:45)
[2025-03-22] MEDS ORDERED: hydrALAZINE HCL 20 MG/ML VL IV PRN (12:45)
[2025-03-22 13:50] VITALS: BP 147/101; PULSE 89; RESP 14; O2SAT 97
== END 2025-03-22 14:30 | disposition home or self-care (01) ==
LOC: SUR 09:24
PROVIDERS: ATTEND Podiatrist
DX: M76.62 Achilles tendinitis, left leg (principal); M77.32 Calcaneal spur, left foot; M77.52 Other enthesopathy of left foot and ankle; M92.62 Juvenile osteochondrosis of tarsus, left ankle; G89.29 Other chronic pain; I10 Essential (primary) hypertension; E11.42 Type 2 diabetes mellitus with diabetic polyneuropathy; J45.909 Unspecified asthma, uncomplicated; E66.9 Obesity, unspecified; Z68.30 Body mass index [BMI] 30.0-30.9, adult; Z79.899 Other long term (current) drug therapy; Z98.890 Other specified postprocedural states; Z87.891 Personal history of nicotine dependence
CPT/HCPCS: 27654; 28119; 36415; 80053; 81001; 85025; 85610; 85730; C1713; C1781; J0690; J1100; J1171; J1885; J2405; J2704; J3010; J0131